=== PATIENT | male | born 1965 | race Caucasian/White ===

== ENCOUNTER 2025-06-17 14:09 | Emergency (ER) | payer BC ==
[~2025-06-17] VITALS: Ht 180.3 cm; Wt 87.5 kg
[~2025-06-17 14:09] MED LIST: AMLODIPINE BESYL5 MG PO; COQ-10100 MG; LEVOTHYROXINE88 MCG PO; SIMVASTATIN40 MG PO
[2025-06-17 18:01] LABS: BASOPHILS % 0.5 % (0.0-1.0); EOSINOPHILS % 0.5 % (0.0-6.0); LYMPHOCYTES % 25.1 % (18.0-39.1); MONOCYTES % 6.5 % (4.4-11.3); NEUTROPHILS % 67.2 % (38.7-80.0); RED CELL DISTRIBUTION WIDTH 12.7 % (11.7-14.4)
[2025-06-17 18:21] LABS: EST GLOMERULAR FILTRATION RATE 64 ML/MIN (>=60)
[2025-06-17 18:40] LABS: INR 0.91
[2025-06-17] MEDS: CLOPIDOGREL BISULFATE 75 MG TAB PO ONE (21:46)
[2025-06-17] MEDS: ASPIRIN 81 MG CHEW TAB PO STA (21:46)
[2025-06-17] MEDS ORDERED: IOPAMIDOL 370 MG/ML 100 ML INFUS..BTL INJ ONE (22:23)
[2025-06-17] MEDS ORDERED: SODIUM CHLORIDE 0.9% 100 ML ONE (22:23)
[2025-06-17 22:59] VITALS: PULSE 86; RESP 18; TEMP 98.5; O2SAT 95
== END 2025-06-18 00:07 | disposition other institution (70) ==
LOC: ER 18:23
DX: H53.19 Other subjective visual disturbances (principal); I77.71 Dissection of carotid artery; I10 Essential (primary) hypertension
CPT/HCPCS: 36415; 70496; 70498; 71045; 80053; 83735; 84484; 85025; 85610; 85730; 93005; 99284; J7050; Q9967